=== PATIENT | female | born 1955 | race Caucasian/White ===

== ENCOUNTER → 2017-10-27 | Outpatient (CLI) | payer OTHER ==
[~2017-10-27] MED LIST: CEP250 PO; LOR5 PO; ONDA4TAB PO; PANT40SU3 PO; PANT40TA65 PO; VARI50KI IM; areds PO
[2017-10-27 14:12] LABS: PLATELET COUNT, AUTOMATED 228 K/uL (150-450)
[2017-10-27 14:18] LABS: LDL CHOLESTEROL 43 mg/dl
== END ==
LOC: LAB 13:38
PROVIDERS: ATTEND Emergency Medicine
DX: R63.5 Abnormal weight gain (principal); Z72.9 Problem related to lifestyle, unspecified; R20.8 Other disturbances of skin sensation
CPT/HCPCS: 36415; 82040; 82247; 82310; 82374; 82435; 82465; 82565; 82607; 82947; 83718; 84075; 84132; 84155; 84295; 84443; 84450; 84460; 84478; 84520; 85025; 86803

== ENCOUNTER → 2017-11-11 | Outpatient (CLI) | payer OTHER | LOC: LAB 15:49 | PROVIDERS: ATTEND Emergency Medicine | DX: E83.19 Other disorders of iron metabolism (principal) | CPT/HCPCS: 36415; 82728; 83540; 83550 ==

== ENCOUNTER → 2017-11-12 | Outpatient (CLI) | payer OTHER ==
--- NOTE | 2017-11-13 08:40 | RADIOLOGY IMAGING REPORT ---
FACILITY: [facility] [place] PATIENT NAME: WASHINGTON CHAMBERLAIN : [id number] MR: [id number] V: [id number] EXAM DATE: ORDERING PHYSICIAN: GABE KANG TECHNOLOGIST: Sumi Pinedo PROCEDURE:BILATERAL DIGITAL SCREENING MAMMOGRAM WITH CAD ASSISTED INTERPRETATION & 3D TOMOSYNTHESIS COMPARISON:Prior mammograms 03/23/12. INDICATIONS:Screening FINDINGS: A small amount of fibroglandular tissue is seen throughout the breasts. The parenchymal pattern has remained stable allowing for difference in mammographic technique & patient positioning. There is no evidence of malignant appearing mass, malignant appearing calcifications or other secondary sign of malignancy in either breast. DIAGNOSTIC CATEGORY 1--NEGATIVE. RECOMMENDATIONS: ROUTINE MAMMOGRAM AND CLINICAL EVALUATION. IMPRESSION: BIRADS 1: Negative. No significant abnormality is seen. Dictated by: Eula Garzon M.D. on 11/12/2017 at 15:46 Transcribed by: GERA on 11/12/2017 at 16:03 Approved by: Eula Garzon M.D. on 11/13/2017 at 8:38 [facility]
== END ==
LOC: MAMO 01:21
PROVIDERS: ATTEND Emergency Medicine
DX: Z12.31 Encounter for screening mammogram for malignant neoplasm of breast (principal)
CPT/HCPCS: 77063; 77067

== ENCOUNTER 2018-04-30 10:42 | Emergency (ER) | payer OTHER ==
[~2018-04-30 10:42] MED LIST changes: +FLU180SY11 IM; +PNEU0.5D3 IM
--- NOTE | 2018-04-30 10:54 | ER Report ---
History and Physical Time Seen By MD: 10:49 Hx. of Stated Complaint: PT REPORTS "PULLING A MUSCLE" IN RIGHT SHOULDER ON THURSDAY OR THURSDAY, TODAY REPORTS NUMBNESS IN RIGHT FINGER TIPS HPI/ROS CHIEF COMPLAINT: Mild right shoulder pain and numbness and tingling of the fingers HISTORY OF PRESENT ILLNESS: This is a 63-year-old female who presents to the emergency department for numbness and tingling to the right fingers. Patient states that Thursday she was working out and developed right shoulder pain which has improved, now she is experiencing mild numbness and tingling to the palmar side of the right small finger, ring finger and middle finger. No wrist pain, no other injuries. No fevers or chills. No chest pain or shortness of breath. She also has some mild cervical discomfort. REVIEW OF SYSTEMS: Respiratory: No cough, no dyspnea. Cardiovascular: No chest pain, no palpitations. Gastrointestinal: No vomiting, no abdominal pain. Musculoskeletal: As above. Allergies: Coded Allergies: Penicillins (Verified Allergy, Mild, TOOK INFANT, 04/30/18) Home Meds Active Scripts Methylprednisolone (METHYLPREDNISOLONE) 4 Mg Tab.ds.pk, 4 MG PO DIRECTED, #1 PACK 0 Refills Prov:PATRICK SMITH DIP PAINTER-BC 04/30/18 Discontinued Reported Medications [areds] No Conflict Check, 1 TAB PO BID 10/27/17 Past Medical/Surgical History The patient has a past medical and surgical history of GERD, ovarian cysts, menopause, arthritis in her knees, macular generation, hard of hearing, skin cancer, presented extraction, colonoscopy. Tonsillectomy. Skin cancer excision. Reviewed Nurses Notes: Yes Hx Smoking: No Smoking Status: Never Smoker Hx Substance Use Disorder: No Hx Alcohol Use: No Constitutional Vital Sign - Last 24 Hours 04/30/18 04/30/18 10:45 12:29 Temp 97.8 Pulse 55 85 Resp 16 16 B/P (MAP) 132/80 134/84 (101) Pulse Ox 95 95 O2 Delivery Room Air Room Air Physical Exam General Appearance: The patient is alert, has no immediate need for airway protection and no current signs of toxicity. Eyes: Pupils equal and round no injection. Respiratory: Chest is non tender, lungs are clear to auscultation. Cardiac: regular rate and rhythm. Gastrointestinal: Abdomen is soft and non tender, no masses, bowel sounds normal. Musculoskeletal: Neck: Mild tenderness to C5/6 area with palpation, no crepitus or obvious deformities. No bruising. Extremities have full range of motion and are non tender. Subjectively tingling to the palmar side of the right small, ring and middle fingers, no physical findings on exam. Skin: No rashes or lesions. DIFFERENTIAL DIAGNOSIS: After history and physical exam differential diagnosis was considered for cervical strain, impingement syndrome, carpal tunnel, cervical radiculopathy. Medical Decision Making EKG/Imaging Imaging PATIENT NAME: Diann Pollack : 1955 MR: [id number] V: [id number] EXAM DATE: ORDERING PHYSICIAN: PATRICK SMITH TECHNOLOGIST: Location: [facility] Patient: Diann Pollack : 1955 Visit/Account:[id number] Date of Sevice: 04/30/2018 Exam type: SHOULDER MIN 2 VIEWS RIGHT History: Lifting injury x4 days, right shoulder radiculopathy Comparison: None. Findings: Four views the right shoulder are submitted. There is no evidence of acute fracture or dislocation. There is mild narrowing the right glenohumeral joint. There are mild to moderate degenerative changes at the right AC joint. Visualized right ribs are unremarkable IMPRESSION: 1. Mild narrowing of the right glenohumeral joint Mild to moderate degenerative changes of the right AC joint Report Dictated By: Eula Garzon MD at 04/30/2018 11:43 AM Report E-Signed By: Eula Garzon MD at 04/30/2018 11:44 AM WSN:[email or web address] Location: [facility] Patient: Diann Pollack : 1955 Visit/Account:[id number] Date of Sevice: 04/30/2018 Exam type: CERVICAL SPINE MIN 4 VIEW History: Right shoulder pain, radiculopathy Comparison: None. Findings: Five views of the cervical spine are submitted. There is mild straightening of normal cervical lordosis which can be seen with muscle spasm. There is calcification in the nuchal ligament. There is mild to moderate disc space narrowing at C4-5 C5-6 and C6-7 with small anterior osteophytes. There is sclerosis of the adjacent endplates at C4-5 and C5-6. There is moderate to severe foraminal narrowing on the left at C3-4 and C4-5 and mild foraminal narrowing on the left at C5-6 and C6-7. There is moderate foraminal narrowing on the right at C4-5 and moderate to severe foraminal narrowing on the right at C5-6 and C6-7. There is no evidence of acute fractures or subluxations or prevertebral soft tissue swelling IMPRESSION: 1. Extensive spondylotic changes of the cervical spine as detailed above. MR may be helpful for further evaluation Report Dictated By: Eula Garzon MD at 04/30/2018 11:41 AM Report E-Signed By: Eula Garzon MD at 04/30/2018 11:43 AM WSN:[email or web address] ED Course/Re-evaluation ED Course The patient was admitted to room. A history of physical were obtained. Differential diagnoses were considered. An x-ray of the cervical spine showing Extensive spondylotic changes of the cervical spine, no acute findings, right shoulder x-ray negative for any acute findings. I did review the results with the patient. I did tell her this is likely a radiculopathy secondary to strain from her workout. I did start her on a Medrol Dosepak, She was also encouraged to take ibuprofen and/or Tylenol as needed for pain. Recommended following up with [facility] for reevaluation. The patient expressed understanding and was discharged home. Decision to Disposition Date: Apr 30, 2018 Decision to Disposition Time: 12:12 Depart Departure Latest Vital Signs Vital Signs Date Time Temp Pulse Resp B/P (MAP) Pulse Ox O2 Delivery O2 Flow Rate FiO2 04/30/18 12:29 85 16 134/84 (101) 95 Room Air 04/30/18 10:45 97.8 Impression: Primary Impression: Cervical radiculopathy Condition: Improved Disposition: HOME OR SELF-CARE Referrals: GABE KANG MD (PCP) ASHLEY READ MD New Scripts Methylprednisolone (METHYLPREDNISOLONE) 4 Mg Tab.ds.pk 4 MG PO DIRECTED, #1 PACK 0 Refills Prov: PATRICK SMITH DIP PAINTER-BC 04/30/18 Patient Instructions: Cervical Radiculopathy (ED) Additional Instructions: Please take the medrol dose pack as directed. You will likely have gradual improvement of your symptoms, if no improvement after the dose pack and therapy, please follow up with Dr. Read at [facility]. Get plenty of rest. Drink plenty of water. Take Tylenol as needed for pain. Follow-up with your primary care provider within the next 1-2 weeks. Return to the emergency room for any other concerns or worsening symptoms. Please follow up with physical therapy as soon as possible. PATRICK SMITHP-BC Apr 30, 2018 10:54
--- NOTE | 2018-04-30 11:48 | RADIOLOGY IMAGING REPORT ---
FACILITY: [facility] PATIENT NAME: Diann Pollack : 1955 MR: [id number] V: [id number] EXAM DATE: ORDERING PHYSICIAN: PATRICK SMITH TECHNOLOGIST: Location: [facility] Patient: Diann Pollack : 1955 Visit/Account:[id number] Date of Sevice: 04/30/2018 Exam type: CERVICAL SPINE MIN 4 VIEW History: Right shoulder pain, radiculopathy Comparison: None. Findings: Five views of the cervical spine are submitted. There is mild straightening of normal cervical lordo sis which can be seen with muscle spasm. There is calcification in the nuchal ligament. There is mi ld to moderate disc space narrowing at C4-5 C5-6 and C6-7 with small anterior osteophytes. There is sclerosis of the adjacent endplates at C4-5 and C5-6. There is moderate to severe foraminal narrowin g on the left at C3-4 and C4-5 and mild foraminal narrowing on the left at C5-6 and C6-7. There is m oderate foraminal narrowing on the right at C4-5 and moderate to severe foraminal narrowing on the ri ght at C5-6 and C6-7. There is no evidence of acute fractures or subluxations or prevertebral soft t issue swelling IMPRESSION: 1. Extensive spondylotic changes of the cervical spine as detailed above. MR may be helpful for fur ther evaluation Report Dictated By: Eula Garzon MD at 04/30/2018 11:41 AM Report E-Signed By: Eula Garzon MD at 04/30/2018 11:43 AM WSN:[email or web address]
--- NOTE | 2018-04-30 11:49 | RADIOLOGY IMAGING REPORT ---
FACILITY: [facility] [place] PATIENT NAME: Diann Pollack : 1955 MR: [id number] V: [id number] EXAM DATE: ORDERING PHYSICIAN: PATRICK SMITH TECHNOLOGIST: Location: [facility] Patient: Diann Pollack : 1955 Visit/Account:[id number] Date of Sevice: 04/30/2018 Exam type: SHOULDER MIN 2 VIEWS RIGHT History: Lifting injury x4 days, right shoulder radiculopathy Comparison: None. Findings: Four views the right shoulder are submitted. There is no evidence of acute fracture or dislocation. There is mild narrowing the right glenohumeral joint. There are mild to moderate degenerative swenson es at the right AC joint. Visualized right ribs are unremarkable IMPRESSION: 1. Mild narrowing of the right glenohumeral joint Mild to moderate degenerative changes of the right AC joint Report Dictated By: Eula Garzon MD at 04/30/2018 11:43 AM Report E-Signed By: Eula Garzon MD at 04/30/2018 11:44 AM WSN:[email or web address]
[2018-04-30] MEDS ORDERED: METH4TAB66 PO (12:20)
[2018-04-30 12:29] VITALS: BP 134/84
== END 2018-04-30 12:31 | disposition home or self-care (01) ==
LOC: ER 11:05
DX: M54.12 Radiculopathy, cervical region (principal)
CPT/HCPCS: 72050; 99284

== ENCOUNTER → 2018-07-14 | Outpatient (CLI) | payer OTHER ==
[~2018-07-14] MED LIST changes: +METH4TAB66 PO; +OMEP40CA48 PO
[2018-07-14 10:29] LABS: PLATELET COUNT, AUTOMATED 219 K/uL (150-450)
== END ==
LOC: LAB 10:06
PROVIDERS: ATTEND Emergency Medicine
DX: R10.9 Unspecified abdominal pain (principal)
CPT/HCPCS: 36415; 82040; 82247; 82310; 82374; 82435; 82565; 82784; 82947; 83516; 84075; 84132; 84155; 84295; 84450; 84460; 84520; 85025

== ENCOUNTER → 2018-10-27 | Outpatient (CLI) | payer OTHER ==
[~2018-10-27] MED LIST changes: +VIT1CAPS9 PO
[2018-10-27 14:04] LABS: PLATELET COUNT, AUTOMATED 226 K/uL (150-450)
--- NOTE | 2018-10-27 14:30 | EKG ---
FACILITY: [facility] PATIENT NAME: WASHINGTON CHAMBERLAIN : [id number] MR: [id number] V: [id number] EXAM DATE: ORDERING PHYSICIAN: GABE KANG TECHNOLOGIST: PAVAN CRESPO Test Reason : SX CLEARNCE Blood Pressure : / mmHG Vent. Rate : 066 BPM Atrial Rate : 066 BPM P-R Int : 148 ms QRS Dur : 078 ms QT Int : 406 ms P-R-T Axes : 073 081 058 degrees QTc Int : 425 ms Normal sinus rhythm Nonspecific ST abnormality Abnormal ECG No previous ECGs available Referred By: WOO Confirmed By:
[2018-10-27 15:45] LABS: LDL CHOLESTEROL 62 mg/dl
== END ==
LOC: LAB 13:20
PROVIDERS: ATTEND Emergency Medicine
DX: Z01.810 Encounter for preprocedural cardiovascular examination (principal); Z01.812 Encounter for preprocedural laboratory examination; N39.0 Urinary tract infection, site not specified; R94.31 Abnormal electrocardiogram [ECG] [EKG]
CPT/HCPCS: 36415; 81001; 82040; 82247; 82310; 82374; 82435; 82465; 82565; 82947; 83036; 83718; 84075; 84132; 84155; 84295; 84443; 84450; 84460; 84478; 84520; 85025; 87088

== ENCOUNTER 2018-11-01 03:11 | Inpatient (IN) | payer OTHER, MEDICARE ==
[2018-10-31 13:28] LABS: INR 1.05
[2018-11-01] VITALS (14 sets, daily range): BP systolic 107–133; BP diastolic 72–89
[~2018-11-01] VITALS: Ht 172.7 cm; Wt 74.4 kg
[2018-11-01] MEDS ORDERED: ROPIVACAINE/EPI/CLONIDINE/KET 50 ML SYRINGE INJ ONE (06:15)
[2018-11-01] MEDS ORDERED: PREGABALIN 150 MG CAPSULE PO ONE (06:15)
[2018-11-01] MEDS ORDERED: ROPIVACAINE CONINFUS ONE (06:15)
[2018-11-01] MEDS ORDERED: TRANEXAMIC AC 1000 MG/10ML SDV 1,000 MG in DEXTROSE 5% 50 ML BAG 50 ML IV ONE (06:15)
[2018-11-01] MEDS ORDERED: ACETAMINOPHEN 500 MG TAB PO ONE (06:15)
[2018-11-01] MEDS ORDERED: FAMOTIDINE 20 MG TAB PO ONE (06:15)
[2018-11-01] MEDS ORDERED: MIDAZOLAM 2 MG/2 ML VIAL IVP PRN (06:15)
[2018-11-01] MEDS ORDERED: LIDOCAINE/SOD BICARB 8.4% SYR ID ONE (06:15)
[2018-11-01] MEDS ORDERED: CLINDAMYCIN(*) 900 MG/NS 50 ML 50 ML IVPB ONE (06:15)
[2018-11-01] MEDS ORDERED: CELECOXIB 200 MG CAP PO ONE (06:15)
[2018-11-01] MEDS ORDERED: NORMOSOL R SOLN(*) 1000 ML BAG 1,000 ML IV PRN ×2 (06:15→10:35)
[2018-11-01] MEDS ORDERED: HYDROmorphone HCL 2 MG/ML SDV ONE (07:39)
[2018-11-01] MEDS ORDERED: LABETALOL HCL 100 MG/20ML VIAL ONE ×2 (07:46→08:08)
[2018-11-01] MEDS ORDERED: PROPOFOL EMUL(*) 10MG/ML 20 ML 20 ML ONE (08:13)
[2018-11-01] MEDS ORDERED: ONDANSETRON 4 MG/2 ML VIAL ONE (08:13)
[2018-11-01] MEDS ORDERED: DEXAMETHASONE SOD PHOS 10MG/ML ONE (08:13)
--- NOTE | 2018-11-01 09:44 | OPERATIVE REPORT 1 ---
EVENT DATE: November 01, 2018 SURGEON: Ronni Nieto MD ANESTHESIOLOGIST: Burton Morataya MD ANESTHESIA: Right adductor canal block followed by general. We also utilized 50 cc of our standard Toradol/ropivacaine cocktail. MANDOLIN REPAIR PERSON: Teofilo Larsen PA-C PREOPERATIVE DIAGNOSIS Right knee degenerative joint disease with loose bodies. POSTOPERATIVE DIAGNOSIS Right knee degenerative joint disease with loose bodies. PROCEDURE PERFORMED Right knee removal of loose bodies followed by total knee arthroplasty. IMPLANTS MicroPort medial pivot CS system with a 4 femur, 4 tibia, 10 mm insert, 8 X 32 symmetric patella, femur cut 6 degrees valgus, 10 mm, two packages of DonJoy [place] blue cement and ZipLine Wound Closure System. SPECIMENS None. COMPLICATIONS None. BLOOD LOSS Less than 200 cc. OPERATION The patient received appropriate preoperative antibiotic, was brought to the OR, where Dr. Morataya performed right adductor canal block followed by general anesthesia. Right thigh tourniquet was placed but was not utilized. The left lower extremity was prepped and draped in the usual sterile fashion. Midline incision was made followed by a medial parapatellar arthrotomy. I dissected subperiosteally along the medial tibial plateau above the level of the insertion of the MCL to the level of the semimembranosus. Laterally, we excised the fat pad, released the patella. We noted two loose bodies in the suprapatellar pouch region. These were removed. The patella was released and everted. There was eburnation in the patellofemoral compartment and grade 3/4 changes in the medial compartment and grade 2 changes in the lateral compartment. The knee was brought into hyperflexion. ACL and PCL were released subperiosteally by Bovie. The remaining articular cartilage was removed from the distal femoral condyle by sagittal saw. Step-cut drill was utilized to broach the femoral canal followed by placement of intramedullary femoral canal distal cutting guide. This was pinned into place at 10 mm, 6 degrees valgus and this cut was made. 3-degree external rotation guide was then placed in position, referencing off the anterior flange for size and medial epicondyles and posterior condyles for rotation and 3-degree external rotation holes were drilled and this was sized to a #4. Four-in-one cutting guide was positioned, followed by Z retractors to protect the soft tissue, and we made our four cuts. The tibia was then brought anteriorly on the femur with appropriate retractors and a step cut drill was utilized to broach the canal. Intramedullary tibial guide was then positioned and we referenced 10 mm off the medial tibial plateau, referenced for rotation, pinned the block into place and made our tibial cut. The stump of the ACL and PCL, medial and lateral meniscus were removed by Bovrose marie. Curved osteotome was utilized to remove posterior osteophytes followed by elevation of the capsule with the Vidal elevator. We placed our tibial baseplate, referencing for the previous rotation, pinned this into place, placed 10 mm inserts and our #4 femur. We achieved full extension, flexion of 140 degrees. The patella appeared to be tracking decently through stable varus and valgus stress and anterior drawer. The knee was then brought into full extension. Patella was sized to 21 mm in depth. This was cut down 6 mm with the guide and accepted a 32 x 8 trial, which was positioned anteriorly and medially and peg holes were drilled. Trial was placed. Peg holes were drilled for the femur, placed and then we cut for trochlear chip and this was placed. Again, we had the aforementioned range of motion and stability. Patella tracked well. Patella, femur and tibial insert were removed. Appropriate retractors were placed to expose the tibial baseplate. We placed our Keel tower, which was then cut, reamed and punched. The instrumentation was then removed, bone plug placed in the distal femur. Knee was brought into full extension and we copiously irrigated by pulse lavage while we mixed two packages of DonJoy [place] blue cement. We then injected 10 cc of our cocktail in the posterior capsule, placed the knee in appropriate position. I started at the tibia. We cemented this into place followed by our 10 mm CS insert and then our #4 femur. Excess cement was removed. The knee was brought in full extension with axial compression while we cemented the patella. We then irrigated with warm water. We then placed the remaining cocktail in the remaining quad mechanism. At 11 minutes, the cement had cured. Again, we had the aforementioned range of motion and stability and tracking. We further irrigated the joint, placed the knee at 30 degrees, closed the arthrotomy with #2 Vicryl followed by 2-0 Vicryl for subcutaneous tissues and after cleaning the wounds placed a Zip-Line Wound Closure system. Compressive dressing was applied. The patient was extubated and taken to recovery in stable condition. Hospitalist team to be consulted for medical management and anticoagulation, PT for rehab. ROSIE
--- NOTE | 2018-11-01 09:56 | RADIOLOGY IMAGING REPORT ---
FACILITY: [facility] PATIENT NAME: Diann Pollack : 1955 MR: [id number] V: [id number] EXAM DATE: ORDERING PHYSICIAN: NEHA MICHEL TECHNOLOGIST: Location: [facility] Patient: Diann Pollack : 1955 Visit/Account:[id number] Date of Sevice: 11/01/2018 KNEE LIMITED RIGHT Indication: POST R TKA Comparison: None. Findings: There are postoperative changes from a right total knee arthroplasty. Hardware appears in good position. IMPRESSION: Postoperative changes right total knee arthroplasty. Report Dictated By: Santos Fong at 11/01/2018 9:46 AM Report E-Signed By: Santos Fong at 11/01/2018 9:46 AM WSN:[email or web address]
[2018-11-01] MEDS ORDERED: FLUSH 10 ML SYR IVP PRN (10:35)
[2018-11-01] MEDS ORDERED: MORPHINE 4 MG/ML SDV IVP PRN (10:35)
[2018-11-01] MEDS ORDERED: MAGNESIUM HYDROXIDE* 30ML UDCP PO PRN (10:35)
[2018-11-01] MEDS ORDERED: BISACODYL 10 MG SUPP PR PRN (10:35)
[2018-11-01] MEDS ORDERED: ZOLPIDEM TARTRATE 5 MG TAB PO PRN (10:35)
[2018-11-01] MEDS ORDERED: PROMETHAZINE 25 MG/ML 1 ML AMP IVP PRN (10:35)
[2018-11-01] MEDS ORDERED: oxyCODONE HCL 5 MG CAP PO PRN (10:35)
[2018-11-01] MEDS ORDERED: traMADol 50 MG TAB PO PRN (10:35)
--- NOTE | 2018-11-01 13:26 | Hospitalist Consultation ---
History of Present Illness Requesting Physician Dr. Nieto Reason for Consult Medical Management Chief Complaint s/p right knee replacement History of Present Illness She was admitted s/p right knee replacement. It is reported the surgery went well and without complication. History Problems: (1) Dry senile macular degeneration Status: Chronic Home Meds Reported Medications Vit C/E/Zn/Coppr/Lutein/Zeaxan (Preservision Areds 2 Softgel) 1 Each Capsule, 2 CAP PO QDAY 10/25/18 Discontinued Scripts Omeprazole (OMEPRAZOLE) 40 Mg Capsule., 40 MG PO QDAY, #30 CAP Prov:GABE KANG MD 07/14/18 Allergies: Coded Allergies: Penicillins (Verified Allergy, Mild, TOOK , 04/30/18) Patient History: FH: dementia MOTHER, , Age:92 FH: diabetes mellitus FATHER, , Age:100 FH: macular degeneration FATHER, , Age:100 FH: skin cancer Hx Smoking: No Smoking Status: Never Smoker Caffeine Intake: Coffee Caffeine/Cups Per Day: 2 TO 3 CUPS PER DAY Hx Alcohol Use: No Hx Substance Use Disorder: No Social Drug Use: Never Review of Systems All Systems Reviewed/Normal: Yes, Except as Noted Exam Vital Signs Vital Signs Date Time Temp Pulse Resp B/P (MAP) Pulse Ox O2 Delivery O2 Flow Rate FiO2 11/01/18 12:00 55 115/73 (87) 98 Nasal Cannula 1.5 11/01/18 10:26 97.8 16 General Appearance: No Acute Distress Cardiovascular: Regular Rate and Rhythm Respiratory: No Respiratory Distress, Clear to Auscultation Psych: Other (sleeping throughout exam) Assessment and Plan Problems: (1) Status post right knee replacement Status: Acute Assessment & Plan: Followed by Dr. Nieto. She does have family history of DVT, but no personal history. At this point, we will continue Aspirin for DVT prophylaxis. If she is not ambulating well post-operatively, will change to Xarelto. Venous Thromboembolism Antithrombotics Is Pt On Any Antithrombotics?: No Exam Sepsis Risk: No Definite Risk KIMANI KOHLI VIDEO GAME DESIGNER Nov 01, 2018 13:26
[2018-11-01] MEDS: ONDANSETRON 4 MG/2 ML VIAL IVP PRN ×2 (15:45→21:57)
--- NOTE | 2018-11-01 15:55 | NUR ---
Physical Therapy Impression PT eval complete. Pt unable to tolerate functional mobility due to dizziness and nausea. Attempted bed mobility, Pt unable to tolerate. CPM fitted and running 0-40 deg. This PT returned at 1540 at which time Pt has just returned from ambulating to bathroom. Pt with nursing who states Pt just vomited. Recommendations pending progress. Physical Therapy Goals 1. Mod I bed mobility. 2. Mod I transfers. 3. Mod I gait x 150' with RW. 4. Ascend/descend stairs for DC environment. 5. Independent use of CPM. Patient's Goals
[2018-11-01] MEDS: CLINDAMYCIN(*) 600 MG/NS 50 ML IVPB SCH ×2 (15:56→23:39)
[2018-11-01] MEDS: ACETAMINOPHEN 500 MG TAB PO SCH (17:29)
[2018-11-02 00:42] VITALS: BP 101/60
[2018-11-02] MEDS: ACETAMINOPHEN 500 MG TAB PO SCH ×2 (00:45→07:46)
[2018-11-02 03:46] VITALS: BP 107/64
[2018-11-02 07:09] VITALS: BP 89/56
[2018-11-02] MEDS: CLINDAMYCIN(*) 600 MG/NS 50 ML IVPB SCH (07:45)
[2018-11-02] MEDS ORDERED: ASPI-757 PO (08:14)
[2018-11-02] MEDS ORDERED: TRAM-420 PO (08:37)
[2018-11-02] MEDS ORDERED: OXYC5CAP21 PO (08:44)
--- NOTE | 2018-11-02 08:47 | NUR ---
Physical Therapy Impression Patient was I with bed mobility and transfers. Patient ambulated in her room I with no AD to toilet and performed toileting I. Patient then taken by w/c to gym for stair training. Patient was instructed in stair training in gym on 4 stairs ascending and descending x 2 reps with CGA for safety with cuing for sequencing and technique. Step to gait with railing on left. Patient performed step over but i corrected her to step to so that she does not overdo it and have a lot of pain. Patient has a full flight of stairs she needs to go up and down at home. Patient then performed bed exercises of ankle pumps, SAQ, Quad and Glute sets, Heel slides all x 10. Patient only concern was feeling flush with taking asprin and acetameniphine at the same time. Nursing was notified of this and addressed this with the patient. Physical Therapy Goals 1. Mod I bed mobility. 2. Mod I transfers. 3. Mod I gait x 150' with RW. 4. Ascend/descend stairs for DC environment. 5. Independent use of CPM. Patient's Goals
[2018-11-02] MEDS ORDERED: ASPIRIN 325 MG TAB PO SCH (09:00)
--- NOTE | 2018-11-02 09:52 | Hospitalist Progress Note ---
Subjective Progress Notes Subjective She was admitted s/p knee replacement. She had no acute events overnight. Patient Complains of: Cardiovascular: No: Chest Pain Respiratory: No: Shortness of Breath Physical Exam Vital Signs Date Time Temp Pulse Resp B/P (MAP) Pulse Ox O2 Delivery O2 Flow Rate FiO2 11/02/18 09:23 94 Room Air 11/02/18 07:09 98.1 70 89/56 (67) 11/02/18 03:46 16 1.0 Intake and Output 11/02/18 01:03 Intake Total 2350 ml Output Total 450 ml Balance 1900 ml Intake Oral 1100 ml IV Total 1250 ml Output Emesis 450 ml # Voids 4 # Emeses 1 General Appearance: Alert, Awake, No Acute Distress, Afebrile Neuro: No Gross deficits Cardiovascular: Regular Rate and Rhythm Respiratory: No Respiratory Distress, Clear to Auscultation GI: Soft and Non-Tender Psych: Alert & Oriented X3, Appropriate Mood & Affect Assessment and Plan Problems: (1) Status post right knee replacement Status: Acute Assessment & Plan: Followed by Dr. Nieto. She does have family history of DVT, but no personal history. At this point, we will continue Aspirin for DVT prophylaxis. She has been ambulating well and without difficulty. Exam Sepsis Risk: No Definite Risk KIMANI KOHLI SENIOR ADVISOR Nov 02, 2018 09:52
[2018-11-02 11:21] VITALS: Ht 172.7 cm; Wt 74.4 kg
== END 2018-11-02 10:15 | disposition home or self-care (01) | DRG 470 ==
LOC: OR 03:11 → MED 10:15 → OBSVTOIN 10:15
PROVIDERS: ADMIT Orthopaedic Surgery; ATTEND Orthopaedic Surgery
PROC: 0SCC0ZZ Extirpation of Matter from Right Knee Joint, Open Approach (ICD-10-PCS; 2018-11-01)
PROC: 0SRC0J9 Replacement of Right Knee Joint with Synthetic Substitute, Cemented, Open Approach (ICD-10-PCS; principal; 2018-11-01 07:17)
DX: M17.11 Unilateral primary osteoarthritis, right knee (principal); M23.41 Loose body in knee, right knee; K21.9 Gastro-esophageal reflux disease without esophagitis; H35.30 Unspecified macular degeneration
CPT/HCPCS: 36415; 85610; 86850; 86900; 86901; 97161; J1100; J1170; J2250; J2405; J2704; J2795; J3490; J7060